=== PATIENT | female | born 1985 | race Caucasian/White ===

== ENCOUNTER 2018-06-02 05:18 | Inpatient (IN) | payer BC ==
[2018-06-02] MEDS ORDERED: Nalbuphine 20 MG/ML 1 ML Syringe IVPUSH PRN (07:15)
[2018-06-02] MEDS ORDERED: Oxytocin/Lactated Ringers 10 UNIT/1,000 ML BAG IV SCH ×2 (07:15)
[2018-06-02] MEDS ORDERED: Sodium Chloride 0.9% 10 ML Syringe FLUSH PRN (07:15)
[2018-06-02] MEDS ORDERED: Ampicillin 2 GM in Sodium Chloride 0.9% 100 ML IV ONE (07:15)
[2018-06-02] MEDS ORDERED: Ondansetron 4 MG/2 ML SDV IVPUSH PRN ×2 (07:15→14:47)
--- NOTE | 2018-06-02 07:20 | PCM.LDHP ---
L&D History of Present Illness - General Date of Service: 06/02/18 Admit Problem/Dx: Patient Status Order with Admit Dx/Problem 06/02/18 07:15 Patient Status [ADT] Routine Admission Diagnosis/Problem Admission Diagnosis/Problem Normal Source of Information: Patient History Limitations: Reports: No Limitations - History of Present Illness Introduction:: Patient is a 33 y/o at 40 2/7 wks who presents for IOL. Doing well. Notes some contractions. Overall mild. 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 : 3 Para: 1 LMP (Approximate): - Past Surgical History HEENT Surgical History: Reports: Other (See Below) ([place] tooth extraction) Social & Family History - Tobacco Use Smoking Status *Q: Never Smoker - Alcohol Use Alcohol Use History: No - Recreational Drug Use Recreational Drug Use: No H&P Review of Systems - Review of Systems: Review Of Systems: See Below General: Reports: No Symptoms Pulmonary: Reports: No Symptoms Cardiovascular: Reports: No Symptoms Gastrointestinal: Reports: No Symptoms Genitourinary: Reports: No Symptoms Musculoskeletal: Reports: No Symptoms Psychiatric: Reports: No Symptoms Neurological: Reports: No Symptoms L&D Exam - Exam Exam: See Below - Vital Signs Weight: 88.451 kg - OB Specific Contraction Intensity: Irritability Movement: Active Heart Tones: Present Heart Tones per Min: 125 Heart Rate (FHR) Variability: Marked (>25 bpm) Presentation: Vertex - Haywood Score Haywood Score Cervix Position: Posterior Haywood Score Consistency: Medium Haywood Score Effacement: 51-70% Haywood Score Dilation: 1-2 cm Haywood Score Infant's Station: -2 Haywood Score Total: 5 - Exam General: Alert, Oriented, Cooperative Lungs: Clear to Auscultation, Normal Respiratory Effort Cardiovascular: Regular Rate, Regular Rhythm GI/Abdominal Exam: Soft, Non-Tender Genitourinary: Normal external exam Extremities: Normal Inspection Skin: Warm, Dry, Intact - Problem List (1) 40 weeks gestation of SNOMED Code(s): 23760707 ICD Code: Z3A.40 - 40 WEEKS GESTATION OF Status: Acute Current Visit: Yes (2) Group B Streptococcus carrier, +RV culture, currently SNOMED Code(s): 5571346766215, 278359242, 6517846860764 ICD Code: O99.820 - STREPTOCOCCUS B CARRIER STATE COMPLICATING Status: Acute Current Visit: No Problem List Initiated/Reviewed/Updated: Yes Orders Last 24hrs: Active Orders 24 hr Category Date Time Status Patient Status [ADT] Routine ADT 06/02/18 07:15 Ordered Communication Order [RC] ASDIRECTED Care 06/02/18 07:15 Ordered Communication Order [RC] ASDIRECTED Care 06/02/18 07:15 Ordered Communication Order [RC] ASDIRECTED Care 06/02/18 07:15 Ordered Heart Tones [RC] ASDIRECTED Care 06/02/18 07:17 Ordered Monitoring [RC] INTERMITTENT Care 06/02/18 07:15 Ordered Non Stress Test [RC] PER UNIT ROUTINE Care 06/02/18 07:15 Ordered Non Stress Test [RC] PER UNIT ROUTINE Care 06/02/18 07:15 Ordered Notify Provider [RC] ASDIRECTED Care 06/02/18 07:15 Ordered Notify Provider [RC] PRN Care 06/02/18 07:15 Ordered Peripheral IV Care [RC] . DIRECTED Care 06/02/18 07:17 Ordered Vaginal Exam [RC] ASDIRECTED Care 06/02/18 07:15 Ordered Vital Signs [RC] ASDIRECTED Care 06/02/18 07:15 Ordered Regular Diet [DIET] Diet 06/02/18 Breakfast Ordered CBC W/O DIFF,HEMOGRAM [HEME] Routine Lab 06/02/18 07:15 Ordered RAPID PLASMA REAGIN,RPR [CHEM] Routine Lab 06/02/18 07:15 Ordered TYPE AND SCREEN [BBK] Routine Lab 06/02/18 07:15 Ordered Ampicillin 1 gm Med 06/02/18 07:15 Ordered Sodium Chloride 0.9% [Normal Saline] 100 ml IV Q4H Ampicillin 2 gm Med 06/02/18 07:15 Ordered Sodium Chloride 0.9% [Normal Saline] 100 ml IV ONETIME Lactated Ringers [Ringers, Lactated] 1,000 ml Med 06/02/18 07:15 Ordered IV ASDIRECTED Nalbuphine [Nubain] Med 06/02/18 07:15 Ordered 10 mg IVPUSH Q2H PRN Ondansetron [Zofran] Med 06/02/18 07:15 Ordered 4 mg IVPUSH Q4H PRN Oxytocin/Lactated Ringers [Pitocin in LR 10 Units/1,000 Med 06/02/18 07:15 Ordered ML] 10 unit in 1,000 ml IV .CONTINUOUS Oxytocin/Lactated Ringers [Pitocin in LR 10 Units/1,000 Med 06/02/18 07:15 Ordered ML] 10 unit in 1,000 ml IV TITRATE Sodium Chloride 0.9% [Saline Flush] Med 06/02/18 07:15 Ordered 10 ml FLUSH ASDIRECTED PRN Electronic Heart Tones Ext w TOCO [WOMSER] Oth 06/02/18 07:15 Ordered Routine Peripheral IV Insertion Adult [OM.PC] Routine Oth 06/02/18 07:15 Ordered Resuscitation Status Routine Resus Stat 06/02/18 07:15 Ordered Assessment/Plan Comment:: 33 y/o at 40 2/7 wks who presents for IOL * Labs drawn * GBS positive, will start ampicillin for prophylaxis * Pitocin for induction with AROM when able * Pain management per patient preference * Anticipate
[2018-06-02] MEDS: Lactated Ringers 1,000 ML IV SCH ×2 (07:36→16:25)
[2018-06-02] MEDS: Ampicillin 1 GM in Sodium Chloride 0.9% 100 ML IV SCH ×2 (11:50→16:27)
--- NOTE | 2018-06-02 11:52 | PCM.PNLD ---
Labor Progress Note - VS & Meds Vital Signs: Last Vital Signs Temp 36.4 C 06/02/18 07:15 Pulse 77 06/02/18 09:14 Resp 17 06/02/18 07:15 BP 119/79 06/02/18 09:14 Pulse Ox Active Medications: Current Medications Ampicillin Sodium 1 gm/ Sodium (Chloride) 100 mls @ 200 mls/hr IV Q4H YOLETTE Lactated Ringer's (Ringers, Lactated) 1,000 mls @ 40 mls/hr IV ASDIRECTED YOLETTE Last Admin: 06/02/18 07:36 Dose: 40 mls/hr Oxytocin/Lactated Ringer's (Pitocin In Lr 10 Units/1,000 Ml) 10 unit in 1,000 mls @ 12 mls/hr IV TITRATE YOLETTE; Protocol Last Titration: 06/02/18 10:34 Dose: 10 munits/min, 60 mls/hr Oxytocin/Lactated Ringer's (Pitocin In Lr 10 Units/1,000 Ml) 10 unit in 1,000 mls @ 500 mls/hr IV .CONTINUOUS YOLETTE Nalbuphine HCl (Nubain) 10 mg IVPUSH Q2H PRN PRN Reason: pain Ondansetron HCl (Zofran) 4 mg IVPUSH Q4H PRN PRN Reason: Nausea/Vomiting Sodium Chloride (Saline Flush) 10 ml FLUSH ASDIRECTED PRN PRN Reason: Keep Vein Open Discontinued Medications Ampicillin Sodium 2 gm/ Sodium (Chloride) 100 mls @ 200 mls/hr IV ONETIME ONE Stop: 06/02/18 07:44 Last Admin: 06/02/18 07:36 Dose: 200 mls/hr - Uterine Contractions Uterine Monitoring Mode: External [place] Contraction Frequency (min): 2-5 Contraction Duration (sec): 60 Contraction Intensity: Mild to Moderate Uterine Resting Tone: Soft - Monitoring Monitor Mode: External Ultrasound Heart Rate (FHR) Baseline: 125 Heart Rate (FHR) Variability: Moderate (6-25 bmp) Accelerations: Present, 15x15 Decelerations: None Strip Review: Category I - Vaginal Exam Dilation (cm): 2 Effacement (Percent): 50 Station: -2 Cervical Position: Posterior Sterile Vaginal Exam Performed By: Nazanin Roberson - Labor Progress (Free Text) Labor Progress: Doing well. Starting to feel contractions. 2nd dose of antibiotics due in the next 20 minutes. AROM performed with release of clear fluid. Continue present management
[2018-06-02] MEDS ORDERED: fentaNYL 100 MCG/2 ML SDV EPIDUR PRN (14:47)
[2018-06-02] MEDS ORDERED: ePHEDrine 50 MG/ML SDV IVPUSH PRN (14:47)
--- NOTE | 2018-06-02 14:51 | PCM.PREANE ---
Preanesthetic Assessment - Anesthesia/Transfusion/Family Hx Anesthesia History: Prior Anesthesia Without Reaction Family History of Anesthesia Reaction: No Transfusion History: No Prior Transfusion(s) Intubation History: Unknown - Review of Systems General: No Symptoms Pulmonary: No Symptoms Cardiovascular: No Symptoms Gastrointestinal: No Symptoms (GERD) Neurological: No Symptoms Other: Reports: Easy Bruising - Physical Assessment NPO Status Date: 06/02/18 NPO Status Time: 10:30 Pulse: 77 O2 Sat by Pulse Oximetry: 99 Respiratory Rate: 17 Blood Pressure: 119/79 Temperature: 36.6 C Vital Signs: Last Vital Signs Temp 36.4 C 06/02/18 07:15 Pulse 77 06/02/18 09:14 Resp 17 06/02/18 07:15 BP 119/79 06/02/18 09:14 Pulse Ox Height: 1.57 m Weight: 88.451 kg ASA Class: 2 Mental Status: Alert & Oriented x3 Airway Class: Mallampati = 2 Dentition: Reports: Normal Dentition, Caries Thyro-Mental Finger Breadths: 3 Mouth Opening Finger Breadths: 3 ROM/Head Extension: Full Lungs: Clear to Auscultation, Normal Respiratory Effort Cardiovascular: Regular Rate, Regular Rhythm, No Murmurs - Lab Values: Laboratory Last Values WBC 11.88 K/mm3 (3.98-10.04) H 06/02/18 07:46 RBC 4.38 M/mm3 (3.98-5.22) 06/02/18 07:46 Hgb 13.2 gm/L (11.2-15.7) 06/02/18 07:46 Hct 38.4 % (34.1-44.9) 06/02/18 07:46 MCV 87.7 fl (79.4-94.8) 06/02/18 07:46 MCH 30.1 pg (25.6-32.2) 06/02/18 07:46 MCHC 34.4 g/dl (32.2-35.5) 06/02/18 07:46 RDW Std Deviation 44.8 fL (36.4-46.3) 06/02/18 07:46 Plt Count 192 K/mm3 (182-369) 06/02/18 07:46 MPV 12.8 fl (9.4-12.3) H 06/02/18 07:46 Blood Type O POSITIVE 06/02/18 07:46 Gel Antibody Screen Negative 06/02/18 07:46 Above labs reviewed and noted and within acceptable ranges to proceed with epidural. - Allergies Allergies/Adverse Reactions: Allergies Allergy/AdvReac Type Severity Reaction Status Date / Time No Known Allergies Allergy Verified 08/29/15 21:35 - Anesthesia Plan Pre-Op Medication Ordered: None - Acknowledgements Anesthesia Type Planned: Epidural Pt an Appropriate Candidate for the Planned Anesthesia: Yes Alternatives and Risks of Anesthesia Discussed w Pt/Guardian: Yes Pt/Guardian Understands and Agrees with Anesthesia Plan: Yes PreAnesthesia Questionnaire HEENT History: Reports: None Genitourinary History: Reports: STD Other Genitourinary History: 2014 chlamydia and HPV treated 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: , 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 - Past Surgical History HEENT Surgical History: Reports: Other (See Below) ([place] tooth extraction) - SUBSTANCE USE Smoking Status *Q: Never Smoker Tobacco Use Within Last Twelve Months: No Second Hand Smoke Exposure: No Recreational Drug Use History: No - HOME MEDS Home Medications: Home Meds Vit 90/Iron Fum/Folic [ Formula] 1 tab PO DAILY 08/30/15 [ History] Benzocaine/Menthol [Dermoplast Pain Relief [place]] 1 spray TOP ASDIRECTED PRN #0 canister 09/01/15 [Rx] Docusate Sodium [Colace] 100 mg PO BID PRN #0 cap 09/01/15 [Rx] Ibuprofen [Motrin] 600 mg PO Q4H PRN #0 tablet 09/01/15 [Rx] - CURRENT (IN HOUSE) MEDS Current Meds: Current Medications Ephedrine Sulfate (Ephedrine Sulfate) 5 mg IVPUSH ASDIRECTED PRN PRN Reason: Hypotension Fentanyl (Sublimaze) 100 mcg EPIDUR Q3H PRN PRN Reason: Pain Fentanyl/Bupivacaine HCl (Fentanyl/Bupivacaine/Ns 2 Mcg-0.125% 100 Ml) 100 ml EPIDUR ASDIRECTED [facility] Ampicillin Sodium 1 gm/ Sodium (Chloride) 100 mls @ 200 mls/hr IV Q4H [facility] Last Admin: 06/02/18 11:50 Dose: 200 mls/hr Lactated Ringer's (Ringers, Lactated) 1,000 mls @ 40 mls/hr IV ASDIRECTED [facility] Last Admin: 06/02/18 07:36 Dose: 40 mls/hr Oxytocin/Lactated Ringer's (Pitocin In Lr 10 Units/1,000 Ml) 10 unit in 1,000 mls @ 12 mls/hr IV TITRATE YOLETTE; Protocol Last Titration: 06/02/18 10:34 Dose: 10 munits/min, 60 mls/hr Oxytocin/Lactated Ringer's (Pitocin In Lr 10 Units/1,000 Ml) 10 unit in 1,000 mls @ 500 mls/hr IV .CONTINUOUS YOLETTE Nalbuphine HCl (Nubain) 10 mg IVPUSH Q2H PRN PRN Reason: pain Ondansetron HCl (Zofran) 4 mg IVPUSH Q4H PRN PRN Reason: Nausea/Vomiting Ondansetron HCl (Zofran) 4 mg IVPUSH ONETIME PRN PRN Reason: Nausea/Vomiting Sodium Chloride (Saline Flush) 10 ml FLUSH ASDIRECTED PRN PRN Reason: Keep Vein Open Discontinued Medications Ampicillin Sodium 2 gm/ Sodium (Chloride) 100 mls @ 200 mls/hr IV ONETIME ONE Stop: 06/02/18 07:44 Last Admin: 06/02/18 07:36 Dose: 200 mls/hr
[2018-06-02] MEDS ORDERED: Bupivacaine/fentaNYL/NS 100 ML Bag EPIDUR SCH (15:00)
--- NOTE | 2018-06-02 17:54 | PCM.DEL ---
L & D Note - General Info Date of Service: 06/02/18 - Delivery Note Labor: Induced by ARM, Induced by Oxytocin Delivery Outcome: Livebirth Infant Delivery Method: Spontaneous Vaginal Delivery-Single Infant Delivery Mode: Spontaneous Presentation: Right Occiput Anterior (REYES) Nuchal Cord: Present, Reduced Anesthesia Type: Epidural Amniotic Fluid Description: Clear Episiotomy Type: None Laceration: None Placenta: Intact, Spontaneous Cord: 3 Vessels Estimated Blood Loss: 250 : Bulb Syringe, Stimulated, Warmed, [place] Used Delivery Comments (Free Text/Narrative):: Patient found to be complete and began pushing. With maternal pushing effort head delivered from an REYES presentation. Nuchal cord present and reduced. With gentle downward traction the shoulders and body delivered. placed on maternal abdomen. Cord clamped and cut. Cord blood obtained. Placenta allowed time to separate and expelled intact. Inspection of the perineum showed no lacerations. - General Info Date of Service: 06/02/18 - Patient Data Vitals - Most Recent: Last Vital Signs Temp 36.6 C 06/02/18 15:02 Pulse 77 06/02/18 15:02 Resp 17 06/02/18 15:02 BP 119/79 06/02/18 15:02 Pulse Ox 99 06/02/18 15:02 Weight - Most Recent: 88.451 kg I&O - Last 24 Hours: Intake & Output 06/02/18 06/02/18 06/02/18 06:59 14:59 22:59 Intake Total 1000 Balance 1000 Lab Results Last 24 Hours: Laboratory Results - last 24 hr 06/02/18 06/02/18 Range/Units 07:46 07:46 WBC 11.88 H (3.98-10.04) K/mm3 RBC 4.38 (3.98-5.22) M/mm3 Hgb 13.2 (11.2-15.7) gm/L Hct 38.4 (34.1-44.9) % MCV 87.7 (79.4-94.8) fl MCH 30.1 (25.6-32.2) pg MCHC 34.4 (32.2-35.5) g/dl RDW Std Deviation 44.8 (36.4-46.3) fL Plt Count 192 (182-369) K/mm3 MPV 12.8 H (9.4-12.3) fl Blood Type O POSITIVE Gel Antibody Screen Negative Med Orders - Current: Current Medications Ephedrine Sulfate (Ephedrine Sulfate) 5 mg IVPUSH ASDIRECTED PRN PRN Reason: Hypotension Fentanyl (Sublimaze) 100 mcg EPIDUR Q3H PRN PRN Reason: Pain Last Admin: 06/02/18 14:59 Dose: 100 mcg Fentanyl/Bupivacaine HCl (Fentanyl/Bupivacaine/Ns 2 Mcg-0.125% 100 Ml) 100 ml EPIDUR ASDIRECTED YOLETTE Last Admin: 06/02/18 15:00 Dose: 100 ml Ampicillin Sodium 1 gm/ Sodium (Chloride) 100 mls @ 200 mls/hr IV Q4H YOLETTE Last Admin: 06/02/18 16:27 Dose: 200 mls/hr Lactated Ringer's (Ringers, Lactated) 1,000 mls @ 40 mls/hr IV ASDIRECTED YOLETTE Last Admin: 06/02/18 16:25 Dose: 500 mls/hr Oxytocin/Lactated Ringer's (Pitocin In Lr 10 Units/1,000 Ml) 10 unit in 1,000 mls @ 12 mls/hr IV TITRATE YOLETTE; Protocol Last Titration: 06/02/18 16:29 Dose: 8 munits/min, 48 mls/hr Oxytocin/Lactated Ringer's (Pitocin In Lr 10 Units/1,000 Ml) 10 unit in 1,000 mls @ 500 mls/hr IV .CONTINUOUS YOLETTE Nalbuphine HCl (Nubain) 10 mg IVPUSH Q2H PRN PRN Reason: pain Ondansetron HCl (Zofran) 4 mg IVPUSH Q4H PRN PRN Reason: Nausea/Vomiting Ondansetron HCl (Zofran) 4 mg IVPUSH ONETIME PRN PRN Reason: Nausea/Vomiting Sodium Chloride (Saline Flush) 10 ml FLUSH ASDIRECTED PRN PRN Reason: Keep Vein Open Discontinued Medications Ampicillin Sodium 2 gm/ Sodium (Chloride) 100 mls @ 200 mls/hr IV ONETIME ONE Stop: 06/02/18 07:44 Last Admin: 06/02/18 07:36 Dose: 200 mls/hr - Problem List & Annotations (1) 40 weeks gestation of SNOMED Code(s): 64571930 Code(s): Z3A.40 - 40 WEEKS GESTATION OF Status: Acute Current Visit: Yes (2) Group B Streptococcus carrier, +RV culture, currently SNOMED Code(s): 0859149853875, 284506556, 0404625484428 Code(s): O99.820 - STREPTOCOCCUS B CARRIER STATE COMPLICATING Status: Acute Current Visit: No (3) Vaginal delivery SNOMED Code(s): 042451386 Code(s): O80 - ENCOUNTER FOR FULL-TERM UNCOMPLICATED DELIVERY Status: Acute Current Visit: No - Problem List Review Problem List Initiated/Reviewed/Updated: Yes - My Orders Last 24 Hours: My Active Orders 06/02/18 07:15 Patient Status [ADT] Routine Communication Order [RC] ASDIRECTED Communication Order [RC] ASDIRECTED Communication Order [RC] ASDIRECTED Notify Provider [RC] ASDIRECTED Notify Provider [RC] PRN Vital Signs [RC] ASDIRECTED Lactated Ringers [Ringers, Lactated] 1,000 ml IV ASDIRECTED Nalbuphine [Nubain] 10 mg IVPUSH Q2H PRN Ondansetron [Zofran] 4 mg IVPUSH Q4H PRN Oxytocin/Lactated Ringers [Pitocin in LR 10 Units/1,000 ML] 10 unit in 1,000 ml IV .CONTINUOUS Oxytocin/Lactated Ringers [Pitocin in LR 10 Units/1,000 ML] 10 unit in 1,000 ml IV TITRATE Sodium Chloride 0.9% [Saline Flush] 10 ml FLUSH ASDIRECTED PRN Electronic Heart Tones Ext w TOCO [WOMSER] Routine Peripheral IV Insertion Adult [OM.PC] Routine Resuscitation Status Routine 06/02/18 07:17 Heart Tones [RC] ASDIRECTED Peripheral IV Care [RC] Q2HR 06/02/18 07:46 PATIENT RETYPE [BBK] Routine RAPID PLASMA REAGIN,RPR [CHEM] Routine TYPE AND SCREEN [BBK] Routine 06/02/18 11:15 Ampicillin 1 gm Sodium Chloride 0.9% [Normal Saline] 100 ml IV Q4H 06/02/18 16:31 Urinary Catheter Assessment [RC] ASDIRECTED 06/02/18 16:45 [place] Catheter Insertion [Insert Urinary Catheter] [OM.PC] Q24H 06/02/18 Breakfast Regular Diet [DIET] - Assessment Assessment:: 33 y/o G2 now P2012 PPD#0 from - Plan Plan:: * Routine cares * Encourage breast feeding * Discharge home in 1-2 days
[2018-06-02] MEDS ORDERED: Lanolin 100% Cream 7 GM Tube TOP PRN (18:14)
[2018-06-02] MEDS ORDERED: Benzocaine/Menthol 20%-0.5% Spray 56 GM Canister TOP PRN (18:14)
[2018-06-02] MEDS ORDERED: Docusate Sodium 100 MG Cap PO PRN (18:14)
[2018-06-02] MEDS ORDERED: Acetaminophen 325 MG Tab PO PRN (18:14)
[2018-06-02] MEDS ORDERED: Witch Hazel Medicated Pads 100/Jar TOP PRN (18:14)
[2018-06-02] MEDS ORDERED: Bupivacaine 0.25% 10 ML SDV ONE (22:00)
--- NOTE | 2018-06-03 06:59 | PCM.PNPP ---
- General Info Date of Service: 06/03/18 Functional Status: Reports: Pain Controlled, Tolerating Diet, Ambulating, Urinating - Review of Systems General: Reports: No Symptoms Pulmonary: Reports: No Symptoms Cardiovascular: Reports: No Symptoms Gastrointestinal: Reports: No Symptoms Genitourinary: Reports: No Symptoms Musculoskeletal: Reports: No Symptoms - Patient Data Vital Signs - Most Recent: Last Vital Signs Temp 36.6 C 06/03/18 05:02 Pulse 81 06/03/18 05:02 Resp 15 06/03/18 05:02 BP 124/77 06/03/18 05:02 Pulse Ox 98 06/03/18 05:02 Weight - Most Recent: 88.451 kg I&O - Last 24 Hours: Intake & Output 06/02/18 06/02/18 06/03/18 14:59 22:59 06:59 Intake Total 1200 1800 Balance 1200 1800 Lab Results - Last 24 Hours: Laboratory Results - last 24 hr 06/02/18 06/02/18 Range/Units 07:46 07:46 WBC 11.88 H (3.98-10.04) K/mm3 RBC 4.38 (3.98-5.22) M/mm3 Hgb 13.2 (11.2-15.7) gm/L Hct 38.4 (34.1-44.9) % MCV 87.7 (79.4-94.8) fl MCH 30.1 (25.6-32.2) pg MCHC 34.4 (32.2-35.5) g/dl RDW Std Deviation 44.8 (36.4-46.3) fL Plt Count 192 (182-369) K/mm3 MPV 12.8 H (9.4-12.3) fl Blood Type O POSITIVE Gel Antibody Screen Negative Med Orders - Current: Current Medications Acetaminophen (Tylenol) 650 mg PO Q4H PRN PRN Reason: mild pain or fever Benzocaine/Menthol (Dermoplast Pain Relief [place]) 0 gm TOP ASDIRECTED PRN PRN Reason: Perineal Comfort Measure Docusate Sodium (Colace) 100 mg PO BID PRN PRN Reason: Constipation Emollient Ointment (Lansinoh Hpa) 0 gm TOP ASDIRECTED PRN PRN Reason: Sore Nipples Ibuprofen (Motrin) 600 mg PO Q6H PRN PRN Reason: Mild pain or fever Witch Anjali (Tucks) 1 pad TOP ASDIRECTED PRN PRN Reason: Hemorrhoid pain Discontinued Medications Ephedrine Sulfate (Ephedrine Sulfate) 5 mg IVPUSH ASDIRECTED PRN PRN Reason: Hypotension Fentanyl (Sublimaze) 100 mcg EPIDUR Q3H PRN PRN Reason: Pain Last Admin: 06/02/18 14:59 Dose: 100 mcg Fentanyl/Bupivacaine HCl (Fentanyl/Bupivacaine/Ns 2 Mcg-0.125% 100 Ml) 100 ml EPIDUR ASDIRECTED YOLETTE Last Admin: 06/02/18 15:00 Dose: 100 ml Ampicillin Sodium 2 gm/ Sodium (Chloride) 100 mls @ 200 mls/hr IV ONETIME ONE Stop: 06/02/18 07:44 Last Admin: 06/02/18 07:36 Dose: 200 mls/hr Ampicillin Sodium 1 gm/ Sodium (Chloride) 100 mls @ 200 mls/hr IV Q4H YOLETTE Last Admin: 06/02/18 16:27 Dose: 200 mls/hr Lactated Ringer's (Ringers, Lactated) 1,000 mls @ 40 mls/hr IV ASDIRECTED YOLETTE Last Admin: 06/02/18 16:25 Dose: 500 mls/hr Oxytocin/Lactated Ringer's (Pitocin In Lr 10 Units/1,000 Ml) 10 unit in 1,000 mls @ 12 mls/hr IV TITRATE YOLETTE; Protocol Last Titration: 06/02/18 17:48 Dose: 500 mls/hr Oxytocin/Lactated Ringer's (Pitocin In Lr 10 Units/1,000 Ml) 10 unit in 1,000 mls @ 500 mls/hr IV .CONTINUOUS YOLETTE Nalbuphine HCl (Nubain) 10 mg IVPUSH Q2H PRN PRN Reason: pain Ondansetron HCl (Zofran) 4 mg IVPUSH Q4H PRN PRN Reason: Nausea/Vomiting Ondansetron HCl (Zofran) 4 mg IVPUSH ONETIME PRN PRN Reason: Nausea/Vomiting Sodium Chloride (Saline Flush) 10 ml FLUSH ASDIRECTED PRN PRN Reason: Keep Vein Open - Infant Interaction Infant Disposition, : [place] in Room with Family Infant Interaction: Holding Infant Feeding: Breastfed Infant; Nursed Well Support Person: - Recovery Exam Fundal Tone: Firm Fundal Level: At Umbilicus Fundal Placement: Midline Lochia Amount: Small Lochia Color: Rubra/Red Episiotomy/Laceration: None Bladder Status: Voiding Urinary Elimination: Voided - Exam General: Alert, Oriented, Cooperative GI/Abdominal Exam: Soft, Non-Tender Extremities: Normal Inspection Skin: Warm, Dry, Intact - Problem List & Annotations (1) 40 weeks gestation of SNOMED Code(s): 39742329 Code(s): Z3A.40 - 40 WEEKS GESTATION OF Status: Acute (2) Group B Streptococcus carrier, +RV culture, currently SNOMED Code(s): 7060931149533, 072696849, 9117446664315 Code(s): O99.820 - STREPTOCOCCUS B CARRIER STATE COMPLICATING Status: Acute (3) Vaginal delivery SNOMED Code(s): 601990734 Code(s): O80 - ENCOUNTER FOR FULL-TERM UNCOMPLICATED DELIVERY Status: Acute - Problem List Review Problem List Initiated/Reviewed/Updated: Yes - My Orders Last 24 Hours: My Active Orders 06/02/18 07:15 Resuscitation Status Routine 06/02/18 07:17 Heart Tones [RC] ASDIRECTED 06/02/18 07:46 RAPID PLASMA REAGIN,RPR [CHEM] Routine 06/02/18 18:14 Activity as Tolerated [RC] PER UNIT ROUTINE Up ad [place] [RC] ASDIRECTED Vital Signs [RC] 03,09,15,21 Acetaminophen [Tylenol] 650 mg PO Q4H PRN Benzocaine/Menthol [Dermoplast Pain Relief [place]] See Dose Instructions TOP ASDIRECTED PRN Docusate Sodium [Colace] 100 mg PO BID PRN Ibuprofen [Motrin] 600 mg PO Q6H PRN Lanolin [Lansinoh HPA] See Dose Instructions TOP ASDIRECTED PRN Witch Anjali [Tucks] 1 pad TOP ASDIRECTED PRN Assess Lochia [WOMSER] Per Unit Routine Assess Uterine Involution [WOMSER] Per Unit Routine Breast Pump [WOMSER] Per Unit Routine Heat Therapy [OM.PC] PRN Ice Therapy [OM.PC] Per Unit Routine Perineal Care [OM.PC] Per Unit Routine Peripheral IV Discontinue [OM.PC] Routine Sitz Bath [OM.PC] Per Unit Routine 06/02/18 Dinner Regular Diet [DIET] 06/03/18 06:58 Ready for Discharge [RC] PER UNIT ROUTINE 06/03/18 18:14 Heat Therapy [OM.PC] PRN - Assessment Assessment:: 33 y/o G2 now P2012 PPD#1 from - Plan Plan:: * Routine cares * Encourage breast feeding * Discharge home today
[2018-06-03] MEDS: Ibuprofen 600 MG Tab PO PRN ×2 (08:12→16:31)
--- NOTE | 2018-06-03 09:12 | PCM48HPAN ---
Post Anesthesia Note - EVALUATION WITHIN 48HRS OF ANESTHETIC Vital Signs in Normal Range: Yes Patient Participated in Evaluation: Yes Respiratory Function Stable: Yes Airway Patent: Yes Cardiovascular Function Stable: Yes Hydration Status Stable: Yes Pain Control Satisfactory: Yes Nausea and Vomiting Control Satisfactory: Yes Mental Status Recovered: Yes - COMMENTS/OBSERVATIONS Free Text/Narrative:: patient denied any anesthesia complications
[2018-06-03 16:38] VITALS: BP 116/78
--- NOTE | 2018-06-03 19:42 | PCM.DCSUM1 ---
Discharge Summary - Discharge Data Discharge Date: 06/03/18 Discharge Disposition: Home, Self-Care 01 Condition: Good - Discharge Diagnosis/Problem(s) (1) 40 weeks gestation of SNOMED Code(s): 35245004 ICD Code: Z3A.40 - 40 WEEKS GESTATION OF Status: Acute (2) Group B Streptococcus carrier, +RV culture, currently SNOMED Code(s): 9484299884185, 894480743, 6833207025071 ICD Code: O99.820 - STREPTOCOCCUS B CARRIER STATE COMPLICATING Status: Acute (3) Vaginal delivery SNOMED Code(s): 468840994 ICD Code: O80 - ENCOUNTER FOR FULL-TERM UNCOMPLICATED DELIVERY Status: Acute - Patient Summary/Data Complications: None Consults: None Recommended Follow-up Testing/Procedures: Follow up in 3-6 weeks for check Hospital Course: 33 y/o at 40 2/7 wks who presented for IOL. This was done with pitocin and AROM. She progressed well to complete dilation and underwent an uncomplicated . See delivery note for full details. she did well and was discharged home on PPD#1 - Patient Instructions Diet: Regular Diet as Tolerated Activity: As Tolerated Activity, Other: Pelvic Rest for 6 weeks Driving: May Drive Today Showering/Bathing: May Shower Showering/Bathing, Other: May Bathe Notify Provider of: Fever, Increased Pain, Swelling and Redness, Drainage, Nausea and/or Vomiting - Discharge Plan *PRESCRIPTION DRUG MONITORING PROGRAM REVIEWED*: Not Applicable *COPY OF PRESCRIPTION DRUG MONITORING REPORT IN PATIENT LINDA: Not Applicable Home Medications: Home Meds Vit 90/Iron Fum/Folic [ Formula] 1 tab PO DAILY 08/30/15 [ History] Docusate Sodium [Colace] 100 mg PO BID PRN cap 06/02/18 [Rx] Ibuprofen [Motrin] 600 mg PO Q6H PRN tablet 06/02/18 [Rx] Patient Handouts: Breast Pumping Tips, Vaginal Delivery, Care After Referrals: Nazanin Roberson MD [Primary Care Provider] - (3-6 weeks for postpatum check ) - Discharge Summary/Plan Comment DC Time >30 min.: No - Patient Data Vitals - Most Recent: Last Vital Signs Temp 36.8 C 06/03/18 16:27 Pulse 76 06/03/18 16:27 Resp 14 06/03/18 16:27 BP 116/78 06/03/18 16:27 Pulse Ox 99 06/03/18 16:27 Weight - Most Recent: 88.451 kg I&O - Last 24 hours: Intake & Output 06/03/18 06/03/18 06/03/18 06:59 14:59 22:59 Intake Total 360 0 Balance 360 0 Lab Results - Last 24 hrs: Laboratory Results - last 24 hr 06/02/18 Range/Units 07:46 RPR Non-reactive (NONREACTIVE) Med Orders - Current: Current Medications Discontinued Medications Acetaminophen (Tylenol) 650 mg PO Q4H PRN PRN Reason: mild pain or fever Benzocaine/Menthol (Dermoplast Pain Relief Gaffney) 0 gm TOP ASDIRECTED PRN PRN Reason: Perineal Comfort Measure Docusate Sodium (Colace) 100 mg PO BID PRN PRN Reason: Constipation Emollient Ointment (Lansinoh Hpa) 0 gm TOP ASDIRECTED PRN PRN Reason: Sore Nipples Last Admin: 06/03/18 08:12 Dose: 1 tube Ephedrine Sulfate (Ephedrine Sulfate) 5 mg IVPUSH ASDIRECTED PRN PRN Reason: Hypotension Fentanyl (Sublimaze) 100 mcg EPIDUR Q3H PRN PRN Reason: Pain Last Admin: 06/02/18 14:59 Dose: 100 mcg Fentanyl/Bupivacaine HCl (Fentanyl/Bupivacaine/Ns 2 Mcg-0.125% 100 Ml) 100 ml EPIDUR ASDIRECTED [facility] Last Admin: 06/02/18 15:00 Dose: 100 ml Ampicillin Sodium 2 gm/ Sodium (Chloride) 100 mls @ 200 mls/hr IV ONETIME ONE Stop: 06/02/18 07:44 Last Admin: 06/02/18 07:36 Dose: 200 mls/hr Ampicillin Sodium 1 gm/ Sodium (Chloride) 100 mls @ 200 mls/hr IV Q4H [facility] Last Admin: 06/02/18 16:27 Dose: 200 mls/hr Lactated Ringer's (Ringers, Lactated) 1,000 mls @ 40 mls/hr IV ASDIRECTED [facility] Last Admin: 06/02/18 16:25 Dose: 500 mls/hr Oxytocin/Lactated Ringer's (Pitocin In Lr 10 Units/1,000 Ml) 10 unit in 1,000 mls @ 12 mls/hr IV TITRATE YOLETTE; Protocol Last Titration: 06/02/18 17:48 Dose: 500 mls/hr Oxytocin/Lactated Ringer's (Pitocin In Lr 10 Units/1,000 Ml) 10 unit in 1,000 mls @ 500 mls/hr IV .CONTINUOUS YOLETTE Ibuprofen (Motrin) 600 mg PO Q6H PRN PRN Reason: Mild pain or fever Last Admin: 06/03/18 16:31 Dose: 600 mg Nalbuphine HCl (Nubain) 10 mg IVPUSH Q2H PRN PRN Reason: pain Ondansetron HCl (Zofran) 4 mg IVPUSH Q4H PRN PRN Reason: Nausea/Vomiting Ondansetron HCl (Zofran) 4 mg IVPUSH ONETIME PRN PRN Reason: Nausea/Vomiting Sodium Chloride (Saline Flush) 10 ml FLUSH ASDIRECTED PRN PRN Reason: Keep Vein Open Witgilmer Alba (Tucks) 1 pad TOP ASDIRECTED PRN PRN Reason: Hemorrhoid pain
== END 2018-06-03 18:20 | disposition home or self-care (01) | DRG 560 ==
LOC: JD.OB 07:04 → OBSVTOIN 17:45 → JD.OB 17:45
PROVIDERS: ADMIT Obstetrics & Gynecology; ATTEND Obstetrics & Gynecology
PROC: 3E033VJ Introduction of Other Hormone into Peripheral Vein, Percutaneous Approach (ICD-10-PCS; principal; 2018-06-02)
PROC: 10E0XZZ Delivery of Products of Conception, External Approach (ICD-10-PCS; principal; 2018-06-02)
PROC: 10907ZC Drainage of Amniotic Fluid, Therapeutic from Products of Conception, Via Natural or Artificial Opening (ICD-10-PCS; principal; 2018-06-02)
PROC: 6A550ZT Pheresis of Cord Blood Stem Cells, Single (ICD-10-PCS; principal; 2018-06-02)
PROC: 3E0R3BZ Introduction of Anesthetic Agent into Spinal Canal, Percutaneous Approach (ICD-10-PCS; 2018-06-02)
PROC: 00HU33Z Insertion of Infusion Device into Spinal Canal, Percutaneous Approach (ICD-10-PCS; 2018-06-02)
DX: O99.824 Streptococcus B carrier state complicating childbirth (principal); O48.0 Post-term pregnancy; Z3A.40 40 weeks gestation of pregnancy; O69.81X0 Labor and delivery complicated by cord around neck, without compression, not applicable or unspecified; Z37.0 Single live birth
CPT/HCPCS: 36415; 51702; 59025; 59409; 85027; 86592; 86850; 86900; 86901; A9270-GY; J0290; J2590; J3010; J3490; J7030; J7120

== ENCOUNTER 2020-02-02 07:50 | Inpatient (IN) | payer BC ==
--- NOTE | 2020-02-02 07:16 | PCM.LDHP ---
L&D History of Present Illness - General Date of Service: 02/02/20 Admit Problem/Dx: Patient Status Order with Admit Dx/Problem 02/02/20 07:10 Patient Status [ADT] Routine Admission Diagnosis/Problem Admission Diagnosis/Problem Gestational diabetes mellitus Source of Information: Patient History Limitations: Reports: No Limitations - History of Present Illness Introduction:: Patient is a 35 y/o at 39 6/7 wks who presents for IOL for GODMA1. Doing well today. 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: , 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 : 4 Para: 2 LMP (Approximate): - Past Surgical History HEENT Surgical History: Reports: Other (See Below) ([place] tooth extraction) Social & Family History - Family History Cardiac: Reports: Hypertension Other Cardiac Family History: mother Musculoskeletal: Reports: None Neurological: Reports: CVA Other Neurological Family History: grandmother Endocrine/Metabolic: Reports: Diabetes, type II Other Endocrine/Metabolic Family History: father and grandfather Oncologic: Reports: Breast, Colon Other Oncologic Family History: grandmother and grandfather - Tobacco Use Smoking Status *Q: Former Smoker - Caffeine Use Caffeine Use: Reports: None - Alcohol Use Alcohol Use History: No - Recreational Drug Use Recreational Drug Use: No H&P Review of Systems - Review of Systems: Review Of Systems: See Below General: Reports: No Symptoms Pulmonary: Reports: No Symptoms Cardiovascular: Reports: No Symptoms Gastrointestinal: Reports: No Symptoms Genitourinary: Reports: No Symptoms Musculoskeletal: Reports: No Symptoms Psychiatric: Reports: No Symptoms Neurological: Reports: No Symptoms L&D Exam - Exam Exam: See Below - OB Specific Contraction Intensity: Mild to Moderate Movement: Active Heart Tones: Present Heart Tones per Min: 145 Heart Rate (FHR) Variability: Moderate (6-25 bmp) Presentation: Vertex - Haywood Score Haywood Score Cervix Position: Midposition Haywood Score Consistency: Soft Haywood Score Effacement: 51-70% Haywood Score Dilation: 1-2 cm (2-3) Haywood Score 's Station: -3 Haywood Score Total: 6 - Exam General: Alert, Oriented, Cooperative Lungs: Clear to Auscultation, Normal Respiratory Effort Cardiovascular: Regular Rate, Regular Rhythm GI/Abdominal Exam: Soft, Non-Tender Genitourinary: Normal external exam Extremities: Normal Inspection Skin: Warm, Dry, Intact - Patient Data Result Diagrams: 02/02/20 08:35 - Problem List (1) 39 weeks gestation of SNOMED Code(s): 24620490 ICD Code: Z3A.39 - 39 WEEKS GESTATION OF Status: Acute Current Visit: Yes (2) Gestational diabetes SNOMED Code(s): 46612370 ICD Code: O24.419 - GESTATIONAL DIABETES MELLITUS IN , UNSP CONTROL Status: Acute Current Visit: Yes Qualifiers: Gestational diabetes mellitus control: diet-controlled Trimester: third trimester Qualified Code(s): O24.410 - Gestational diabetes mellitus in , diet controlled (3) Group B Streptococcus carrier, +RV culture, currently SNOMED Code(s): 6024616906266, 623759892, 8685017894507 ICD Code: O99.820 - STREPTOCOCCUS B CARRIER STATE COMPLICATING Status: Acute Current Visit: No Problem List Initiated/Reviewed/Updated: Yes Orders Last 24hrs: Active Orders 24 hr Category Date Time Status Patient Status [ADT] Routine ADT 02/02/20 07:10 Ordered Blood Glucose Check, Bedside [RC] Q4HR Care 02/02/20 07:10 Ordered Communication Order [RC] ASDIRECTED Care 02/02/20 07:10 Ordered Communication Order [RC] ASDIRECTED Care 02/02/20 07:10 Ordered Communication Order [RC] ASDIRECTED Care 02/02/20 07:10 Ordered Monitoring [RC] INTERMITTENT Care 02/02/20 07:10 Ordered Non Stress Test [RC] PER UNIT ROUTINE Care 02/02/20 07:10 Ordered Notify Provider [RC] ASDIRECTED Care 02/02/20 07:10 Ordered Notify Provider [RC] PRN Care 02/02/20 07:10 Ordered Peripheral IV Care [RC] . DIRECTED Care 02/02/20 07:12 Ordered Up ad Selina [RC] ASDIRECTED Care 02/02/20 07:12 Ordered Vaginal Exam [RC] ASDIRECTED Care 02/02/20 07:10 Ordered Vital Signs [RC] ASDIRECTED Care 02/02/20 07:10 Ordered Regular Diet [DIET] Diet 02/02/20 Breakfast Ordered CBC W/O DIFF,HEMOGRAM [HEME] Routine Lab 02/02/20 07:10 Ordered RAPID PLASMA REAGIN,RPR [CHEM] Routine Lab 02/02/20 07:10 Ordered TYPE AND SCREEN [BBK] Routine Lab 02/02/20 07:10 Ordered Acetaminophen [Tylenol] Med 02/02/20 07:10 Ordered 650 mg PO Q4H PRN Ampicillin 1 gm Med 02/02/20 07:15 Ordered Sodium Chloride 0.9% [Normal Saline] 100 ml IV Q4H Ampicillin 2 gm Med 02/02/20 07:10 Ordered Sodium Chloride 0.9% [Normal Saline] 100 ml IV ONETIME Lactated Ringers [Ringers, Lactated] 1,000 ml Med 02/02/20 07:15 Ordered IV ASDIRECTED Nalbuphine [Nubain] Med 02/02/20 07:10 Ordered 10 mg IVPUSH Q2H PRN Ondansetron [Zofran] Med 02/02/20 07:10 Ordered 4 mg IVPUSH Q4H PRN Oxytocin/Lactated Ringers [Pitocin in LR 10 Units/1,000 Med 02/02/20 07:15 Ordered ML] 10 unit in 1,000 ml IV .CONTINUOUS Oxytocin/Lactated Ringers [Pitocin in LR 10 Units/1,000 Med 02/02/20 07:15 Ordered ML] 10 unit in 1,000 ml IV TITRATE Sodium Chloride 0.9% [Saline Flush] Med 02/02/20 07:10 Ordered 10 ml FLUSH ASDIRECTED PRN Electronic Heart Tones Internal [WOMSER] Per Unit Oth 02/02/20 07:10 Ordered Routine Peripheral IV Insertion Adult [OM.PC] Routine Oth 02/02/20 07:10 Ordered Resuscitation Status Routine Resus Stat 02/02/20 07:10 Ordered Assessment/Plan Comment:: * Labs done * GBS positive, on Ampicillin * Pitocin and AROM * Blood sugars q4 in latent labor, q2 in active * Pain management per patient preference * Anticipative
[~2020-02-02 07:50] MED LIST: Acetaminophen 325 MG Tab PO PRN; Ampicillin 2 GM in Sodium Chloride 0.9% 100 ML IV ONE; Bupivacaine 0.25% 10 ML SDV ONE; Nalbuphine 10 MG/ML Syringe IVPUSH PRN; Ondansetron 4 MG/2 ML SDV IVPUSH PRN; Oxytocin/Lactated Ringers 10 UNIT/1,000 ML BAG IV SCH; Sodium Chloride 0.9% 10 ML Syringe FLUSH PRN; ePHEDrine Sulfate/0.9% NaCl/Pf 25 MG/5 ML SYRINGE IV ONE
[2020-02-02] MEDS: Lactated Ringers 1,000 ML IV SCH ×4 (08:42→15:36)
[2020-02-02] MEDS ORDERED: diphenhydrAMINE 50 MG/ML SDV IVPUSH PRN (09:05)
[2020-02-02] MEDS ORDERED: ePHEDrine 50 MG/ML SDV IVPUSH PRN (09:05)
[2020-02-02] MEDS ORDERED: fentaNYL 100 MCG/2 ML SDV EPIDUR PRN (09:05)
[2020-02-02] MEDS ORDERED: Bupivacaine/fentaNYL/NS 100 ML Bag EPIDUR PRN (09:05)
--- NOTE | 2020-02-02 09:22 | PCM.PREANE ---
Preanesthetic Assessment - Procedure Proposed Procedure: bebe - Anesthesia/Transfusion/Family Hx Anesthesia History: Prior Anesthesia Without Reaction Family History of Anesthesia Reaction: No Transfusion History: No Prior Transfusion(s) Intubation History: Unknown - Review of Systems General: No Symptoms Pulmonary: No Symptoms Cardiovascular: No Symptoms Gastrointestinal: No Symptoms Neurological: No Symptoms Other: Reports: Diabetes (gestational ) - Physical Assessment Vital Signs: 128/87 86 98% 20 Height: 5 ft 2 in Weight: 92.079 kg ASA Class: 2 Mental Status: Alert & Oriented x3 Airway Class: Mallampati = 1 Dentition: Reports: Normal Dentition Thyro-Mental Finger Breadths: 3 Mouth Opening Finger Breadths: 3 ROM/Head Extension: Full Lungs: Clear to Auscultation, Normal Respiratory Effort Cardiovascular: Regular Rate, Regular Rhythm - Lab Values: Laboratory Last Values WBC 11.82 K/mm3 (3.98-10.04) H 02/02/20 08:35 RBC 4.87 M/mm3 (3.98-5.22) 02/02/20 08:35 Hgb 14.3 gm/dl (11.2-15.7) 02/02/20 08:35 Hct 42.1 % (34.1-44.9) 02/02/20 08:35 MCV 86.4 fl (79.4-94.8) 02/02/20 08:35 MCH 29.4 pg (25.6-32.2) 02/02/20 08:35 MCHC 34.0 g/dl (32.2-35.5) 02/02/20 08:35 RDW Std Deviation 44.4 fL (36.4-46.3) 02/02/20 08:35 Plt Count 186 K/mm3 (182-369) 02/02/20 08:35 MPV 12.8 fl (9.4-12.3) H 02/02/20 08:35 Blood Type O POSITIVE 02/02/20 08:35 - Allergies Allergies/Adverse Reactions: Allergies Allergy/AdvReac Type Severity Reaction Status Date / Time No Known Allergies Allergy Verified 08/29/15 21:35 - Blood Blood Available: No - Acknowledgements Anesthesia Type Planned: Epidural Pt an Appropriate Candidate for the Planned Anesthesia: Yes Alternatives and Risks of Anesthesia Discussed w Pt/Guardian: Yes Pt/Guardian Understands and Agrees with Anesthesia Plan: Yes PreAnesthesia Questionnaire HEENT History: Reports: None Cardiovascular History: Reports: None Respiratory History: Reports: None Gastrointestinal History: Reports: GERD (with preg) Genitourinary History: Reports: STD Other Genitourinary History: 2014 chlamydia and HPV 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: , 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) Para: 2 Musculoskeletal History: Reports: None Endocrine/Metabolic History: Reports: Diabetes, Gestational - Past Surgical History HEENT Surgical History: Reports: Oral Surgery, Other (See Below) ([place] tooth extraction) - History Comment History Comment: prilosec every day - SUBSTANCE USE Smoking Status *Q: Former Smoker (quit 2006) Tobacco Use Within Last Twelve Months: No Second Hand Smoke Exposure: No Days Per Week of Alcohol Use: 0 Recreational Drug Use History: No - HOME MEDS Home Medications: Home Meds Vit 90/Iron Fum/Folic [ Formula] 1 tab PO DAILY 08/30/15 [ History] Docusate Sodium [Colace] 100 mg PO BID PRN cap 06/02/18 [Rx] Ibuprofen [Motrin] 600 mg PO Q6H PRN tablet 06/02/18 [Rx] - CURRENT (IN HOUSE) MEDS Current Meds: Current Medications Acetaminophen (Tylenol) 650 mg PO Q4H PRN PRN Reason: Pain (Mild 1-3) and fever Diphenhydramine HCl (Benadryl) 25 mg IVPUSH Q6H PRN PRN Reason: pruritis Ephedrine Sulfate (Ephedrine Sulfate) 5 mg IVPUSH ASDIRECTED PRN PRN Reason: Hypotension Fentanyl (Sublimaze) 100 mcg EPIDUR Q3H PRN PRN Reason: Pain Fentanyl/Bupivacaine HCl (Fentanyl/Bupivacaine/Ns 2 Mcg-0.125% 100 Ml) 100 ml EPIDUR ASDIRECTED PRN PRN Reason: Pain Ampicillin Sodium 1 gm/ Sodium (Chloride) 100 mls @ 200 mls/hr IV Q4H YOLETTE Lactated Ringer's (Ringers, Lactated) 1,000 mls @ 40 mls/hr IV ASDIRECTED YOLETTE Last Admin: 02/02/20 08:42 Dose: 40 mls/hr Oxytocin/Lactated Ringer's (Pitocin In Lr 10 Units/1,000 Ml) 10 unit in 1,000 mls @ 12 mls/hr IV TITRATE YOLETTE; Protocol Last Admin: 02/02/20 09:10 Dose: 2 munits/min, 12 mls/hr Oxytocin/Lactated Ringer's (Pitocin In Lr 10 Units/1,000 Ml) 10 unit in 1,000 mls @ 500 mls/hr IV .CONTINUOUS YOLETTE Nalbuphine HCl (Nubain) 10 mg IVPUSH Q2H PRN PRN Reason: Pain Ondansetron HCl (Zofran) 4 mg IVPUSH Q4H PRN PRN Reason: Nausea/Vomiting Sodium Chloride (Saline Flush) 10 ml FLUSH ASDIRECTED PRN PRN Reason: Keep Vein Open Discontinued Medications Ampicillin Sodium 2 gm/ Sodium (Chloride) 100 mls @ 200 mls/hr IV ONETIME ONE Stop: 02/02/20 07:59 Last Admin: 02/02/20 08:43 Dose: 200 mls/hr
[2020-02-02] MEDS ORDERED: Ampicillin 1 GM in Sodium Chloride 0.9% 100 ML IV SCH (11:30)
[2020-02-02] MEDS: Ampicillin 1 GM in Sodium Chloride 0.9% 100 ML IV SCH ×2 (12:35→16:33)
--- NOTE | 2020-02-02 17:01 | PCM.PNLD ---
Labor Progress Note - VS & Meds Vital Signs: Last Vital Signs Temp 36.8 C 02/02/20 08:30 Pulse 92 02/02/20 08:30 Resp 16 02/02/20 08:30 BP 135/92 H 02/02/20 08:30 Pulse Ox 98 02/02/20 08:30 Active Medications: Current Medications Acetaminophen (Tylenol) 650 mg PO Q4H PRN PRN Reason: Pain (Mild 1-3) and fever Diphenhydramine HCl (Benadryl) 25 mg IVPUSH Q6H PRN PRN Reason: pruritis Ephedrine Sulfate (Ephedrine Sulfate) 5 mg IVPUSH ASDIRECTED PRN PRN Reason: Hypotension Fentanyl (Sublimaze) 100 mcg EPIDUR Q3H PRN PRN Reason: Pain Last Admin: 02/02/20 12:47 Dose: 100 mcg Fentanyl/Bupivacaine HCl (Fentanyl/Bupivacaine/Ns 2 Mcg-0.125% 100 Ml) 100 ml EPIDUR ASDIRECTED PRN PRN Reason: Pain Last Admin: 02/02/20 12:48 Dose: 100 ml Lactated Ringer's (Ringers, Lactated) 1,000 mls @ 40 mls/hr IV ASDIRECTED [facility]TTE Last Admin: 02/02/20 15:36 Dose: 40 mls/hr Oxytocin/Lactated Ringer's (Pitocin In Lr 10 Units/1,000 Ml) 10 unit in 1,000 mls @ 12 mls/hr IV TITRATE YOLETTE; Protocol Last Titration: 02/02/20 15:30 Dose: 5 munits/min, 30 mls/hr Oxytocin/Lactated Ringer's (Pitocin In Lr 10 Units/1,000 Ml) 10 unit in 1,000 mls @ 500 mls/hr IV .CONTINUOUS YOLETTE Ampicillin Sodium 1 gm/ Sodium (Chloride) 100 mls @ 200 mls/hr IV Q4H [facility]E Last Admin: 02/02/20 16:33 Dose: 200 mls/hr Nalbuphine HCl (Nubain) 10 mg IVPUSH Q2H PRN PRN Reason: Pain Ondansetron HCl (Zofran) 4 mg IVPUSH Q4H PRN PRN Reason: Nausea/Vomiting Sodium Chloride (Saline Flush) 10 ml FLUSH ASDIRECTED PRN PRN Reason: Keep Vein Open Discontinued Medications Ampicillin Sodium 2 gm/ Sodium (Chloride) 100 mls @ 200 mls/hr IV ONETIME ONE Stop: 02/02/20 07:59 Last Admin: 02/02/20 08:43 Dose: 200 mls/hr Ampicillin Sodium 1 gm/ Sodium (Chloride) 100 mls @ 200 mls/hr IV Q4H YOLETTE Last Admin: 02/02/20 12:53 Dose: Not Given - Uterine Contractions Uterine Monitoring Mode: External Shattuck Contraction Intensity: Moderate to Strong Uterine Resting Tone: Soft - Monitoring Monitor Mode: External Ultrasound Heart Rate (FHR) Baseline: 155 Heart Rate (FHR) Variability: Moderate (6-25 bmp) Accelerations: Present, 15x15 Decelerations: Late, Intermittent (<50% x 20 min) Strip Review: Category II - Vaginal Exam Dilation (cm): 4 Effacement (Percent): 80 Station: -3 - Labor Progress (Free Text) Labor Progress: Patient got epidural around 1330 or so. Had hypotensive episode with this and thus episode of late deceleration. Have been resolving with ephedrine, position changes. Pitocin now down to 5 as well. Will decrease further if needed. Continue to monitor closely
--- NOTE | 2020-02-02 19:52 | PCM.DEL ---
L & D Note - General Info Date of Service: 02/02/20 - Delivery Note Labor: Induced by ARM, Induced by Oxytocin Delivery Outcome: Livebirth Infant Delivery Method: Spontaneous Vaginal Delivery-Single Delivery Mode: Spontaneous Presentation: Right Occiput Anterior (REYES) Nuchal Cord: None Anesthesia Type: Epidural Amniotic Fluid Description: Clear Episiotomy Type: None Laceration: None Placenta: Intact, Spontaneous Cord: 3 Vessels Estimated Blood Loss: 100 Resuscitation Needed: Yes Remus: Bulb Syringe, Stimulated, Warmed, Huffman Used, Warmer Used Delivery Comments (Free Text/Narrative):: Patient found to be complete and began pushing. With maternal pushing effort head delivered from REYES presentation. No nuchal cord present. With gentle downward traction shoulders and body delivered. Infant placed on maternal abdomen. Cord clamped and cut. Cord blood obtained. Placenta allowed time to separate and expelled intact. Inspection of perineum showed no lacerations - General Info Date of Service: 02/02/20 - Patient Data Vitals - Most Recent: Last Vital Signs Temp 36.8 C 02/02/20 08:30 Pulse 92 02/02/20 08:30 Resp 16 02/02/20 08:30 BP 135/92 H 02/02/20 08:30 Pulse Ox 98 02/02/20 08:30 Weight - Most Recent: 92.079 kg I&O - Last 24 Hours: Intake & Output 02/02/20 02/02/20 02/02/20 06:59 14:59 22:59 Intake Total 0 3300 Output Total 1150 Balance 0 2150 Lab Results Last 24 Hours: Laboratory Results - last 24 hr 02/02/20 02/02/20 02/02/20 Range/Units 08:35 08:35 08:35 WBC 11.82 H (3.98-10.04) K/mm3 RBC 4.87 (3.98-5.22) M/mm3 Hgb 14.3 (11.2-15.7) gm/dl Hct 42.1 (34.1-44.9) % MCV 86.4 (79.4-94.8) fl MCH 29.4 (25.6-32.2) pg MCHC 34.0 (32.2-35.5) g/dl RDW Std Deviation 44.4 (36.4-46.3) fL Plt Count 186 (182-369) K/mm3 MPV 12.8 H (9.4-12.3) fl POC Glucose (70-105) mg/dL RPR Non-reactive (NONREACTIVE) Blood Type O POSITIVE Gel Antibody Screen Negative 02/02/20 02/02/20 02/02/20 Range/Units 08:36 12:33 16:44 WBC (3.98-10.04) K/mm3 RBC (3.98-5.22) M/mm3 Hgb (11.2-15.7) gm/dl Hct (34.1-44.9) % MCV (79.4-94.8) fl MCH (25.6-32.2) pg MCHC (32.2-35.5) g/dl RDW Std Deviation (36.4-46.3) fL Plt Count (182-369) K/mm3 MPV (9.4-12.3) fl POC Glucose 77 84 114 H (70-105) mg/dL RPR (NONREACTIVE) Blood Type Gel Antibody Screen Med Orders - Current: Current Medications Acetaminophen (Tylenol) 650 mg PO Q4H PRN PRN Reason: Pain (Mild 1-3) and fever Diphenhydramine HCl (Benadryl) 25 mg IVPUSH Q6H PRN PRN Reason: pruritis Ephedrine Sulfate (Ephedrine Sulfate) 5 mg IVPUSH ASDIRECTED PRN PRN Reason: Hypotension Last Admin: 02/02/20 13:26 Dose: 25 mg Fentanyl (Sublimaze) 100 mcg EPIDUR Q3H PRN PRN Reason: Pain Last Admin: 02/02/20 12:47 Dose: 100 mcg Fentanyl/Bupivacaine HCl (Fentanyl/Bupivacaine/Ns 2 Mcg-0.125% 100 Ml) 100 ml EPIDUR ASDIRECTED PRN PRN Reason: Pain Last Admin: 02/02/20 12:48 Dose: 100 ml Lactated Ringer's (Ringers, Lactated) 1,000 mls @ 40 mls/hr IV ASDIRECTED YOLETTE Last Admin: 02/02/20 15:36 Dose: 40 mls/hr Oxytocin/Lactated Ringer's (Pitocin In Lr 10 Units/1,000 Ml) 10 unit in 1,000 mls @ 12 mls/hr IV TITRATE YOLETTE; Protocol Last Titration: 02/02/20 18:15 Dose: 3 munits/min, 18 mls/hr Oxytocin/Lactated Ringer's (Pitocin In Lr 10 Units/1,000 Ml) 10 unit in 1,000 mls @ 500 mls/hr IV .CONTINUOUS YOLETTE Ampicillin Sodium 1 gm/ Sodium (Chloride) 100 mls @ 200 mls/hr IV Q4H YOLETTE Last Admin: 02/02/20 16:33 Dose: 200 mls/hr Nalbuphine HCl (Nubain) 10 mg IVPUSH Q2H PRN PRN Reason: Pain Ondansetron HCl (Zofran) 4 mg IVPUSH Q4H PRN PRN Reason: Nausea/Vomiting Sodium Chloride (Saline Flush) 10 ml FLUSH ASDIRECTED PRN PRN Reason: Keep Vein Open Discontinued Medications Ampicillin Sodium 2 gm/ Sodium (Chloride) 100 mls @ 200 mls/hr IV ONETIME ONE Stop: 02/02/20 07:59 Last Admin: 02/02/20 08:43 Dose: 200 mls/hr Ampicillin Sodium 1 gm/ Sodium (Chloride) 100 mls @ 200 mls/hr IV Q4H [facility]E Last Admin: 02/02/20 12:53 Dose: Not Given - Problem List & Annotations (1) 39 weeks gestation of SNOMED Code(s): 48711247 Code(s): Z3A.39 - 39 WEEKS GESTATION OF Status: Acute Current Visit: Yes (2) Gestational diabetes SNOMED Code(s): 13582406 Code(s): O24.419 - GESTATIONAL DIABETES MELLITUS IN , UNSP CONTROL Status: Acute Current Visit: Yes Qualifiers: Gestational diabetes mellitus control: diet-controlled Trimester: third trimester Qualified Code(s): O24.410 - Gestational diabetes mellitus in , diet controlled (3) Group B Streptococcus carrier, +RV culture, currently SNOMED Code(s): 1631236726792, 198644560, 1145363292364 Code(s): O99.820 - STREPTOCOCCUS B CARRIER STATE COMPLICATING Status: Acute Current Visit: No (4) Vaginal delivery SNOMED Code(s): 109798166 Code(s): O80 - ENCOUNTER FOR FULL-TERM UNCOMPLICATED DELIVERY Status: Acute Current Visit: No - Problem List Review Problem List Initiated/Reviewed/Updated: Yes - My Orders Last 24 Hours: My Active Orders 02/02/20 07:10 Patient Status [ADT] Routine Blood Glucose Check, Bedside [RC] Q4HR Communication Order [RC] ASDIRECTED Communication Order [RC] ASDIRECTED Communication Order [RC] ASDIRECTED Notify Provider [RC] ASDIRECTED Notify Provider [RC] PRN Vital Signs [RC] ASDIRECTED Acetaminophen [Tylenol] 650 mg PO Q4H PRN Nalbuphine [Nubain] 10 mg IVPUSH Q2H PRN Ondansetron [Zofran] 4 mg IVPUSH Q4H PRN Sodium Chloride 0.9% [Saline Flush] 10 ml FLUSH ASDIRECTED PRN Electronic Heart Tones Internal [WOMSER] Per Unit Routine Peripheral IV Insertion Adult [OM.PC] Routine Resuscitation Status Routine 02/02/20 07:12 Up ad Selina [RC] ASDIRECTED 02/02/20 07:15 Lactated Ringers [Ringers, Lactated] 1,000 ml IV ASDIRECTED Oxytocin/Lactated Ringers [Pitocin in LR 10 Units/1,000 ML] 10 unit in 1,000 ml IV .CONTINUOUS Oxytocin/Lactated Ringers [Pitocin in LR 10 Units/1,000 ML] 10 unit in 1,000 ml IV TITRATE 02/02/20 12:43 Ampicillin 1 gm Sodium Chloride 0.9% [Normal Saline] 100 ml IV Q4H 02/02/20 Breakfast Regular Diet [DIET] - Assessment Assessment:: PPD#0 - Plan Plan:: * Routine cares * Breast feeding * Fasting blood sugar in AM * Discharge home in 24-48 hours
[2020-02-02] MEDS ORDERED: Benzocaine/Menthol 20%-0.5% Spray 56 GM Canister TOP PRN (20:11)
[2020-02-02] MEDS ORDERED: Acetaminophen 325 MG Tab PO PRN (20:11)
[2020-02-02] MEDS ORDERED: Witch Hazel Medicated Pads 40/Jar TOP PRN (20:11)
[2020-02-02] MEDS ORDERED: Docusate Sodium 100 MG Cap PO PRN (20:11)
[2020-02-02] MEDS: Ibuprofen 600 MG Tab PO PRN (21:06)
--- NOTE | 2020-02-03 07:09 | PCM.PNPP ---
- General Info Date of Service: 02/03/20 Functional Status: Reports: Pain Controlled, Tolerating Diet, Ambulating, Urinating - Review of Systems General: Reports: No Symptoms Pulmonary: Reports: No Symptoms Cardiovascular: Reports: No Symptoms Gastrointestinal: Reports: No Symptoms Genitourinary: Reports: No Symptoms Musculoskeletal: Reports: No Symptoms Neurological: Reports: No Symptoms - General Info Date of Service: 02/03/20 - Patient Data Vital Signs - Most Recent: Last Vital Signs Temp 36.7 C 02/03/20 04:56 Pulse 66 02/03/20 04:56 Resp 16 02/03/20 04:56 BP 120/80 02/03/20 04:56 Pulse Ox 96 02/03/20 04:56 Weight - Most Recent: 92.079 kg I&O - Last 24 Hours: Intake & Output 02/02/20 02/03/20 02/03/20 22:59 06:59 14:59 Intake Total 4300 Output Total 1150 Balance 3150 Lab Results - Last 24 Hours: Laboratory Results - last 24 hr 02/02/20 02/02/20 02/02/20 Range/Units 08:35 08:35 08:35 WBC 11.82 H (3.98-10.04) K/mm3 RBC 4.87 (3.98-5.22) M/mm3 Hgb 14.3 (11.2-15.7) gm/dl Hct 42.1 (34.1-44.9) % MCV 86.4 (79.4-94.8) fl MCH 29.4 (25.6-32.2) pg MCHC 34.0 (32.2-35.5) g/dl RDW Std Deviation 44.4 (36.4-46.3) fL Plt Count 186 (182-369) K/mm3 MPV 12.8 H (9.4-12.3) fl POC Glucose (70-105) mg/dL RPR Non-reactive (NONREACTIVE) Blood Type O POSITIVE Gel Antibody Screen Negative 02/02/20 02/02/20 02/02/20 Range/Units 08:36 12:33 16:44 WBC (3.98-10.04) K/mm3 RBC (3.98-5.22) M/mm3 Hgb (11.2-15.7) gm/dl Hct (34.1-44.9) % MCV (79.4-94.8) fl MCH (25.6-32.2) pg MCHC (32.2-35.5) g/dl RDW Std Deviation (36.4-46.3) fL Plt Count (182-369) K/mm3 MPV (9.4-12.3) fl POC Glucose 77 84 114 H (70-105) mg/dL RPR (NONREACTIVE) Blood Type Gel Antibody Screen 02/03/20 Range/Units 05:33 WBC (3.98-10.04) K/mm3 RBC (3.98-5.22) M/mm3 Hgb (11.2-15.7) gm/dl Hct (34.1-44.9) % MCV (79.4-94.8) fl MCH (25.6-32.2) pg MCHC (32.2-35.5) g/dl RDW Std Deviation (36.4-46.3) fL Plt Count (182-369) K/mm3 MPV (9.4-12.3) fl POC Glucose 65 L (70-105) mg/dL RPR (NONREACTIVE) Blood Type Gel Antibody Screen Med Orders - Current: Current Medications Acetaminophen (Tylenol) 650 mg PO Q4H PRN PRN Reason: mild pain or fever Benzocaine/Menthol (Dermoplast Pain Relief [place]) 0 gm TOP ASDIRECTED PRN PRN Reason: Perineal Comfort Measure Last Admin: 02/02/20 21:08 Dose: 1 canister Docusate Sodium (Colace) 100 mg PO BID PRN PRN Reason: Constipation Ibuprofen (Motrin) 600 mg PO Q6H PRN PRN Reason: Mild pain or fever Last Admin: 02/02/20 21:06 Dose: 600 mg Witch Indigo (Tucks) 1 pad TOP ASDIRECTED PRN PRN Reason: Perineal Comfort Measure Last Admin: 02/02/20 21:06 Dose: 1 tub Discontinued Medications Acetaminophen (Tylenol) 650 mg PO Q4H PRN PRN Reason: Pain (Mild 1-3) and fever Diphenhydramine HCl (Benadryl) 25 mg IVPUSH Q6H PRN PRN Reason: pruritis Ephedrine Sulfate (Ephedrine Sulfate) 5 mg IVPUSH ASDIRECTED PRN PRN Reason: Hypotension Last Admin: 02/02/20 13:26 Dose: 25 mg Fentanyl (Sublimaze) 100 mcg EPIDUR Q3H PRN PRN Reason: Pain Last Admin: 02/02/20 12:47 Dose: 100 mcg Fentanyl/Bupivacaine HCl (Fentanyl/Bupivacaine/Ns 2 Mcg-0.125% 100 Ml) 100 ml EPIDUR ASDIRECTED PRN PRN Reason: Pain Last Admin: 02/02/20 12:48 Dose: 100 ml Ampicillin Sodium 2 gm/ Sodium (Chloride) 100 mls @ 200 mls/hr IV ONETIME ONE Stop: 02/02/20 07:59 Last Admin: 02/02/20 08:43 Dose: 200 mls/hr Ampicillin Sodium 1 gm/ Sodium (Chloride) 100 mls @ 200 mls/hr IV Q4H YOLETTE Last Admin: 02/02/20 12:53 Dose: Not Given Lactated Ringer's (Ringers, Lactated) 1,000 mls @ 40 mls/hr IV ASDIRECTED YOLETTE Last Admin: 02/02/20 15:36 Dose: 40 mls/hr Oxytocin/Lactated Ringer's (Pitocin In Lr 10 Units/1,000 Ml) 10 unit in 1,000 mls @ 12 mls/hr IV TITRATE YOLETTE; Protocol Last Titration: 02/02/20 18:15 Dose: 3 munits/min, 18 mls/hr Oxytocin/Lactated Ringer's (Pitocin In Lr 10 Units/1,000 Ml) 10 unit in 1,000 mls @ 500 mls/hr IV .CONTINUOUS YOLETTE Ampicillin Sodium 1 gm/ Sodium (Chloride) 100 mls @ 200 mls/hr IV Q4H YOLETTE Last Admin: 02/02/20 16:33 Dose: 200 mls/hr Nalbuphine HCl (Nubain) 10 mg IVPUSH Q2H PRN PRN Reason: Pain Ondansetron HCl (Zofran) 4 mg IVPUSH Q4H PRN PRN Reason: Nausea/Vomiting Sodium Chloride (Saline Flush) 10 ml FLUSH ASDIRECTED PRN PRN Reason: Keep Vein Open - Infant Interaction Infant Disposition, : in Room with Family Interaction: Holding Infant Feeding: Attempted ; Nursed Fair/Poor Support Person: - Recovery Exam Fundal Tone: Firm Fundal Level: 1 Fingerbreadths Below Umbilicus Fundal Placement: Midline Lochia Amount: Small Lochia Color: Rubra/Red Perineum Description: Intact, Minimal Bruising/Swelling Episiotomy/Laceration: Approximated Bladder Status: Voiding Urinary Elimination: Voided - Exam General: Alert, Oriented, Cooperative GI/Abdominal Exam: Soft, Non-Tender Extremities: Normal Inspection - Problem List & Annotations (1) 39 weeks gestation of SNOMED Code(s): 62642400 Code(s): Z3A.39 - 39 WEEKS GESTATION OF Status: Acute Current Visit: Yes (2) Gestational diabetes SNOMED Code(s): 90642418 Code(s): O24.419 - GESTATIONAL DIABETES MELLITUS IN , UNSP CONTROL Status: Acute Current Visit: Yes Qualifiers: Gestational diabetes mellitus control: diet-controlled Trimester: third trimester Qualified Code(s): O24.410 - Gestational diabetes mellitus in , diet controlled (3) Group B Streptococcus carrier, +RV culture, currently SNOMED Code(s): 0211052287401, 699737513, 2675060430423 Code(s): O99.820 - STREPTOCOCCUS B CARRIER STATE COMPLICATING Status: Acute Current Visit: No (4) Vaginal delivery SNOMED Code(s): 499672546 Code(s): O80 - ENCOUNTER FOR FULL-TERM UNCOMPLICATED DELIVERY Status: Acute Current Visit: No - Problem List Review Problem List Initiated/Reviewed/Updated: Yes - My Orders Last 24 Hours: My Active Orders 02/02/20 07:10 Resuscitation Status Routine 02/02/20 20:11 Activity as Tolerated [RC] PER UNIT ROUTINE Vital Signs [RC] 03,09,15,21 Acetaminophen [Tylenol] 650 mg PO Q4H PRN Benzocaine/Menthol [Dermoplast Pain Relief [place]] See Dose Instructions TOP ASDIRECTED PRN Docusate Sodium [Colace] 100 mg PO BID PRN Ibuprofen [Motrin] 600 mg PO Q6H PRN witch Indigo [Tucks] 1 pad TOP ASDIRECTED PRN Assess Lochia [WOMSER] Per Unit Routine Assess Uterine Involution [WOMSER] Per Unit Routine Breast Pump [WOMSER] Per Unit Routine Heat Therapy [OM.PC] PRN Ice Therapy [OM.PC] Per Unit Routine Perineal Care [OM.PC] Per Unit Routine Peripheral IV Discontinue [OM.PC] Routine Sitz Bath [OM.PC] Per Unit Routine 02/02/20 Dinner Regular Diet [DIET] 02/03/20 05:00 Blood Glucose Check, Bedside [RC] ONETIME 02/03/20 07:09 Ready for Discharge [RC] PER UNIT ROUTINE 02/03/20 20:11 Heat Therapy [OM.PC] PRN - Assessment Assessment:: PPD#1 - Plan Plan:: * Routine cares * Breast feeding * Fasting blood sugar this AM appropriate. Will need 2hr GTT at 6 weeks * Discharge home today vs tomorrow
--- NOTE | 2020-02-03 07:09 | PCM.DCSUM1 ---
Discharge Summary - Discharge Data Discharge Date: 02/03/20 Discharge Disposition: Home, Self-Care 01 Condition: Good - Referral to Home Health Primary Care Physician: Nazanin Roberson MD - Discharge Diagnosis/Problem(s) (1) 39 weeks gestation of SNOMED Code(s): 98166475 ICD Code: Z3A.39 - 39 WEEKS GESTATION OF Status: Acute Current Visit: Yes (2) Gestational diabetes SNOMED Code(s): 24878579 ICD Code: O24.419 - GESTATIONAL DIABETES MELLITUS IN , UNSP CONTROL Status: Acute Current Visit: Yes Qualifiers: Gestational diabetes mellitus control: diet-controlled Trimester: third trimester Qualified Code(s): O24.410 - Gestational diabetes mellitus in , diet controlled (3) Group B Streptococcus carrier, +RV culture, currently SNOMED Code(s): 4408472759383, 150796651, 0627407664773 ICD Code: O99.820 - STREPTOCOCCUS B CARRIER STATE COMPLICATING Status: Acute Current Visit: No (4) Vaginal delivery SNOMED Code(s): 117684311 ICD Code: O80 - ENCOUNTER FOR FULL-TERM UNCOMPLICATED DELIVERY Status: Acute Current Visit: No - Patient Summary/Data Complications: None Consults: None Recommended Follow-up Testing/Procedures: Follow up in 3 weeks for check Hospital Course: Patient is a 35-year-old 012 who presented at 39-6/7 weeks gestation for induction of labor for diet controlled gestational diabetes. Induction done with Pitocin and AROM. Progressed well to complete dilation. Underwent an uncomplicated . See delivery note. did well. Was discharged home on PPD#1 - Patient Instructions Diet: Regular Diet as Tolerated Activity: As Tolerated Activity, Other: Pelvic rest for 6 weeks Driving: May Drive Today Showering/Bathing: May Shower Showering/Bathing, Other: May Bathe Notify Provider of: Fever, Increased Pain, Swelling and Redness, Drainage, Nausea and/or Vomiting - Discharge Plan *PRESCRIPTION DRUG MONITORING PROGRAM REVIEWED*: No *COPY OF PRESCRIPTION DRUG MONITORING REPORT IN PATIENT LINDA: No Home Medications: Home Meds Vit 90/Iron Fum/Folic [ Formula] 1 tab PO DAILY 08/30/15 [ History] [place]-3/DHA/Epa/Fish Oil [[place]-3 Fish Oil Softgel] 1 tab PO DAILY 02/02/20 [ History] Docusate Sodium [Colace] 100 mg PO BID PRN cap 02/03/20 [Rx] Ibuprofen [Motrin] 600 mg PO Q6H PRN tablet 02/03/20 [Rx] Patient Handouts: Breast Pumping Tips, [id number], Tips for a Good Latch, Care After Vaginal Delivery Referrals: Nazanin Roberson MD [Primary Care Provider] - (3 weeks for check - can be telehealth) - Discharge Summary/Plan Comment DC Time >30 min.: No - Patient Data Vitals - Most Recent: Last Vital Signs Temp 36.7 C 02/03/20 04:56 Pulse 66 02/03/20 04:56 Resp 16 02/03/20 04:56 BP 120/80 02/03/20 04:56 Pulse Ox 96 02/03/20 04:56 Weight - Most Recent: 92.079 kg I&O - Last 24 hours: Intake & Output 02/02/20 02/03/20 02/03/20 22:59 06:59 14:59 Intake Total 4300 Output Total 1150 Balance 3150 Lab Results - Last 24 hrs: Laboratory Results - last 24 hr 02/02/20 02/02/20 02/02/20 Range/Units 08:35 08:35 08:35 WBC 11.82 H (3.98-10.04) K/mm3 RBC 4.87 (3.98-5.22) M/mm3 Hgb 14.3 (11.2-15.7) gm/dl Hct 42.1 (34.1-44.9) % MCV 86.4 (79.4-94.8) fl MCH 29.4 (25.6-32.2) pg MCHC 34.0 (32.2-35.5) g/dl RDW Std Deviation 44.4 (36.4-46.3) fL Plt Count 186 (182-369) K/mm3 MPV 12.8 H (9.4-12.3) fl POC Glucose (70-105) mg/dL RPR Non-reactive (NONREACTIVE) Blood Type O POSITIVE Gel Antibody Screen Negative 02/02/20 02/02/20 02/02/20 Range/Units 08:36 12:33 16:44 WBC (3.98-10.04) K/mm3 RBC (3.98-5.22) M/mm3 Hgb (11.2-15.7) gm/dl Hct (34.1-44.9) % MCV (79.4-94.8) fl MCH (25.6-32.2) pg MCHC (32.2-35.5) g/dl RDW Std Deviation (36.4-46.3) fL Plt Count (182-369) K/mm3 MPV (9.4-12.3) fl POC Glucose 77 84 114 H (70-105) mg/dL RPR (NONREACTIVE) Blood Type Gel Antibody Screen 02/03/20 Range/Units 05:33 WBC (3.98-10.04) K/mm3 RBC (3.98-5.22) M/mm3 Hgb (11.2-15.7) gm/dl Hct (34.1-44.9) % MCV (79.4-94.8) fl MCH (25.6-32.2) pg MCHC (32.2-35.5) g/dl RDW Std Deviation (36.4-46.3) fL Plt Count (182-369) K/mm3 MPV (9.4-12.3) fl POC Glucose 65 L (70-105) mg/dL RPR (NONREACTIVE) Blood Type Gel Antibody Screen Med Orders - Current: Current Medications Acetaminophen (Tylenol) 650 mg PO Q4H PRN PRN Reason: mild pain or fever Benzocaine/Menthol (Dermoplast Pain Relief [place]) 0 gm TOP ASDIRECTED PRN PRN Reason: Perineal Comfort Measure Last Admin: 02/02/20 21:08 Dose: 1 canister Docusate Sodium (Colace) 100 mg PO BID PRN PRN Reason: Constipation Ibuprofen (Motrin) 600 mg PO Q6H PRN PRN Reason: Mild pain or fever Last Admin: 02/02/20 21:06 Dose: 600 mg Witch Anjali (Tucks) 1 pad TOP ASDIRECTED PRN PRN Reason: Perineal Comfort Measure Last Admin: 02/02/20 21:06 Dose: 1 tub Discontinued Medications Acetaminophen (Tylenol) 650 mg PO Q4H PRN PRN Reason: Pain (Mild 1-3) and fever Diphenhydramine HCl (Benadryl) 25 mg IVPUSH Q6H PRN PRN Reason: pruritis Ephedrine Sulfate (Ephedrine Sulfate) 5 mg IVPUSH ASDIRECTED PRN PRN Reason: Hypotension Last Admin: 02/02/20 13:26 Dose: 25 mg Fentanyl (Sublimaze) 100 mcg EPIDUR Q3H PRN PRN Reason: Pain Last Admin: 02/02/20 12:47 Dose: 100 mcg Fentanyl/Bupivacaine HCl (Fentanyl/Bupivacaine/Ns 2 Mcg-0.125% 100 Ml) 100 ml EPIDUR ASDIRECTED PRN PRN Reason: Pain Last Admin: 02/02/20 12:48 Dose: 100 ml Ampicillin Sodium 2 gm/ Sodium (Chloride) 100 mls @ 200 mls/hr IV ONETIME ONE Stop: 02/02/20 07:59 Last Admin: 02/02/20 08:43 Dose: 200 mls/hr Ampicillin Sodium 1 gm/ Sodium (Chloride) 100 mls @ 200 mls/hr IV Q4H YOLETTE Last Admin: 02/02/20 12:53 Dose: Not Given Lactated Ringer's (Ringers, Lactated) 1,000 mls @ 40 mls/hr IV ASDIRECTED YOLETTE Last Admin: 02/02/20 15:36 Dose: 40 mls/hr Oxytocin/Lactated Ringer's (Pitocin In Lr 10 Units/1,000 Ml) 10 unit in 1,000 mls @ 12 mls/hr IV TITRATE YOLETTE; Protocol Last Titration: 02/02/20 18:15 Dose: 3 munits/min, 18 mls/hr Oxytocin/Lactated Ringer's (Pitocin In Lr 10 Units/1,000 Ml) 10 unit in 1,000 mls @ 500 mls/hr IV .CONTINUOUS YOLETTE Ampicillin Sodium 1 gm/ Sodium (Chloride) 100 mls @ 200 mls/hr IV Q4H YOLETTE Last Admin: 02/02/20 16:33 Dose: 200 mls/hr Nalbuphine HCl (Nubain) 10 mg IVPUSH Q2H PRN PRN Reason: Pain Ondansetron HCl (Zofran) 4 mg IVPUSH Q4H PRN PRN Reason: Nausea/Vomiting Sodium Chloride (Saline Flush) 10 ml FLUSH ASDIRECTED PRN PRN Reason: Keep Vein Open
[2020-02-03] MEDS: Ibuprofen 600 MG Tab PO PRN (11:12)
[2020-02-03 15:26] VITALS: BP 115/68; PULSE 68
--- NOTE | 2020-02-04 01:39 | PCM48HPAN ---
Post Anesthesia Note - EVALUATION WITHIN 48HRS OF ANESTHETIC Vital Signs in Normal Range: Yes Patient Participated in Evaluation: Yes Respiratory Function Stable: Yes Airway Patent: Yes Cardiovascular Function Stable: Yes Hydration Status Stable: Yes Pain Control Satisfactory: Yes Nausea and Vomiting Control Satisfactory: Yes Mental Status Recovered: Yes Vital Signs: Last Vital Signs Temp 36.7 C 02/03/20 14:53 Pulse 68 02/03/20 14:53 Resp 14 02/03/20 14:53 BP 115/68 02/03/20 14:53 Pulse Ox 95 02/03/20 14:53
== END 2020-02-03 20:30 | disposition home or self-care (01) | DRG 560 ==
LOC: JD.OBCHECK 07:50 → JD.OB 07:51 → OBSVTOIN 19:42 → JD.OB 19:43
PROVIDERS: ADMIT Obstetrics & Gynecology; ATTEND Obstetrics & Gynecology
PROC: 10E0XZZ Delivery of Products of Conception, External Approach (ICD-10-PCS; principal; 2020-02-02)
PROC: 10907ZC Drainage of Amniotic Fluid, Therapeutic from Products of Conception, Via Natural or Artificial Opening (ICD-10-PCS; 2020-02-02)
PROC: 3E033VJ Introduction of Other Hormone into Peripheral Vein, Percutaneous Approach (ICD-10-PCS; 2020-02-02)
PROC: 3E0R3BZ Introduction of Anesthetic Agent into Spinal Canal, Percutaneous Approach (ICD-10-PCS; 2020-02-02)
DX: O24.420 Gestational diabetes mellitus in childbirth, diet controlled (principal); O99.62 Diseases of the digestive system complicating childbirth; O99.824 Streptococcus B carrier state complicating childbirth; K21.9 Gastro-esophageal reflux disease without esophagitis; O76 Abnormality in fetal heart rate and rhythm complicating labor and delivery; Z3A.39 39 weeks gestation of pregnancy; Z37.0 Single live birth; Z87.891 Personal history of nicotine dependence; Z79.899 Other long term (current) drug therapy
CPT/HCPCS: 01967; 36415; 51702; 59025; 59409; 82962; 85027; 86592; 86850; 86900; 86901; A9270-GY; J0171; J0290; J2590; J3010; J3490; J7050; J7120

== ENCOUNTER 2022-01-09 13:08 | Inpatient (IN) | payer OTHER ==
[2022-01-11] MEDS ORDERED: Bupivacaine 0.25% 10 ML SDV ONE
[2022-01-11] MEDS ORDERED: Ampicillin 2 GM in Sodium Chloride 0.9% 100 ML IV ONE (13:02)
[2022-01-11] MEDS ORDERED: Ondansetron 4 MG/2 ML SDV IVPUSH PRN (13:02)
[2022-01-11] MEDS ORDERED: Sodium Chloride 0.9% 10 ML Syringe FLUSH PRN (13:02)
[2022-01-11] MEDS ORDERED: Nalbuphine 10 MG/1 ML Vial IVPUSH PRN (13:02)
[2022-01-11] MEDS ORDERED: Lidocaine 1% 50 ML MDV INJECT ONE (13:02)
[2022-01-11] MEDS ORDERED: Oxytocin/Lactated Ringers 10 UNIT/1,000 ML BAG IV SCH ×2 (13:15)
[2022-01-11] MEDS: Lactated Ringers 1,000 ML IV SCH ×3 (13:51→16:35)
[2022-01-11] MEDS ORDERED: Bupivacaine/fentaNYL/NS 100 ML Bag EPIDUR PRN (16:16)
[2022-01-11] MEDS ORDERED: fentaNYL 100 MCG/2 ML SDV EPIDUR PRN (16:16)
[2022-01-11] MEDS ORDERED: ePHEDrine 50 MG/ML SDV IVPUSH PRN (16:16)
[2022-01-11] MEDS ORDERED: diphenhydrAMINE 50 MG/ML SDV IVPUSH PRN (16:16)
[2022-01-11] MEDS: Ampicillin 1 GM in Sodium Chloride 0.9% 100 ML IV SCH (17:47)
[2022-01-11] MEDS ORDERED: Witch Hazel Medicated Pads 40/Jar TOP PRN (19:56)
[2022-01-11] MEDS ORDERED: Docusate Sodium 100 MG Cap PO PRN (19:56)
[2022-01-11] MEDS ORDERED: Benzocaine/Menthol 20%-0.5% Spray 78 GM Cannister TOP PRN (19:56)
[2022-01-11] MEDS ORDERED: Acetaminophen 325 MG Tab PO PRN (19:56)
[2022-01-11] MEDS ORDERED: Sodium Chloride 0.9% 10 ML Syringe FLUSH SCH (21:00)
[2022-01-12] MEDS: Ampicillin 1 GM in Sodium Chloride 0.9% 100 ML IV SCH (00:56)
[2022-01-12] MEDS: Ibuprofen 600 MG Tab PO PRN ×2 (03:37→09:59)
[2022-01-12 15:03] VITALS: BP 112/81; PULSE 78
== END 2022-01-12 20:10 | disposition home or self-care (01) | DRG 807 ==
LOC: JD.OB 01-11 12:35 → OBSVTOIN 01-11 19:17 → JD.OB 01-11 19:18
PROVIDERS: ADMIT Obstetrics & Gynecology; ATTEND Obstetrics & Gynecology
PROC: 10E0XZZ Delivery of Products of Conception, External Approach (ICD-10-PCS; principal; 2022-01-11)
PROC: 10907ZC Drainage of Amniotic Fluid, Therapeutic from Products of Conception, Via Natural or Artificial Opening (ICD-10-PCS; 2022-01-11)
PROC: 3E033VJ Introduction of Other Hormone into Peripheral Vein, Percutaneous Approach (ICD-10-PCS; 2022-01-11)
PROC: 3E0R3BZ Introduction of Anesthetic Agent into Spinal Canal, Percutaneous Approach (ICD-10-PCS; 2022-01-11)
DX: O24.420 Gestational diabetes mellitus in childbirth, diet controlled (principal); Z37.0 Single live birth; Z3A.40 40 weeks gestation of pregnancy; O99.824 Streptococcus B carrier state complicating childbirth; Z20.822 Contact with and (suspected) exposure to COVID-19
CPT/HCPCS: 01967; 36415; 51702; 59025; 59409; 82947; 85025; 86592; 86850; 86900; 86901; A9270-GY; J0290; J2590; J3010; J3490; J7120; U0002

== ENCOUNTER 2025-08-14 19:17 | Emergency (ER) | payer BC, OTHER ==
[2025-08-14] MEDS ORDERED: Sodium Chloride 0.9% 10 ML Syringe FLUSH PRN (20:04)
[2025-08-14] MEDS: Iopamidol 755 Mg/ML 100 ML Bottle IVPUSH ONE (20:22)
[2025-08-14] MEDS: Sodium Chloride 0.9% 10 ML Syringe FLUSH ONE (20:23)
[2025-08-14 23:11] VITALS: BP 125/75; PULSE 89
== END 2025-08-14 22:30 | disposition home or self-care (01) ==
LOC: JD.ED 19:17
DX: R09.A2 Foreign body sensation, throat (principal); E11.9 Type 2 diabetes mellitus without complications
CPT/HCPCS: 70491; 74018; 76536; 99284; Q9967; 99282